=== PATIENT | female | born 1945 | race Caucasian/White ===

== ENCOUNTER → 2016-09-26 | Outpatient (CLI) | payer MEDICARE, BC | END | disposition home or self-care (01) | LOC: CFH 12:57 | PROVIDERS: ATTEND Internal Medicine Critical Care Medicine | DX: Z12.2 Encounter for screening for malignant neoplasm of respiratory organs (principal); J44.9 Chronic obstructive pulmonary disease, unspecified; Z87.891 Personal history of nicotine dependence | CPT/HCPCS: G0297 ==

== ENCOUNTER 2016-12-07 13:20 | Emergency (ER) | payer MEDICARE, BC ==
[~2016-12-07] VITALS: Ht 170.2 cm; Wt 66.5 kg
[~2016-12-07 13:20] MED LIST: ALBU18HF INH; ASPI-515 PO; ATEN50TA41 PO; ATOR40TA78 PO; FLUT12HF2 INH; GABA800T PO; TOPI100T38 PO; TRAZ100T15 PO
[2016-12-07] MEDS ORDERED: CRAN300T PO (15:29)
[2016-12-07] MEDS ORDERED: MULT-252 PO (15:29)
[2016-12-07] MEDS ORDERED: KETOROLAC 30 MG/1 ML ONE (15:37)
[2016-12-07 15:58] LABS: BLOOD UREA NITROGEN 8 mg/dL (7-18)
[2016-12-07] MEDS ORDERED: KETOROLAC 30 MG/1 ML IM ONE (16:00)
[2016-12-07 16:05] LABS: ASPARTATE AMINO TRANSFERASE 15 U/L (15-37)
[2016-12-07 18:00] VITALS: BP 155/68
== END 2016-12-07 18:01 | disposition home or self-care (01) ==
LOC: ED 17:55
DX: S20.212A Contusion of left front wall of thorax, initial encounter (principal); S20.211A Contusion of right front wall of thorax, initial encounter; J44.9 Chronic obstructive pulmonary disease, unspecified; I10 Essential (primary) hypertension; I25.2 Old myocardial infarction; Z85.828 Personal history of other malignant neoplasm of skin; W01.0XXA Fall on same level from slipping, tripping and stumbling without subsequent striking against object, initial encounter; Y93.89 Activity, other specified; Y92.009 Unspecified place in unspecified non-institutional (private) residence as the place of occurrence of the external cause; Y99.9 Unspecified external cause status
CPT/HCPCS: 36415; 71020; 80053; 83880; 84484; 85025; 93005; 96372; 99285; J1885

== ENCOUNTER → 2017-12-05 | Outpatient (CLI) | payer MEDICARE, BC ==
[~2017-12-05] MED LIST changes: +CRAN300T PO; +MULT-252 PO; +OMNIPAQUE 350 MG/ML, 100ML BOTTLE ONE; -TOPI100T38 PO; +TOPI100T39 PO
[2017-12-05 11:22] LABS: CREATININE 0.91 mg/dL (0.55-1.02)
== END | disposition home or self-care (01) ==
LOC: RAD 10:30
PROVIDERS: ATTEND Internal Medicine
DX: D17.71 Benign lipomatous neoplasm of kidney (principal); J43.2 Centrilobular emphysema; N20.0 Calculus of kidney; R63.4 Abnormal weight loss; F17.210 Nicotine dependence, cigarettes, uncomplicated
CPT/HCPCS: 36415; 71260; 74177; 82565; Q9967

== ENCOUNTER 2018-06-22 17:20 | Observation (INO) | payer MEDICARE, BC ==
[~2018-06-22] VITALS: Ht 165.1 cm; Wt 67.5 kg
[~2018-06-22 17:20] MED LIST changes: -OMNIPAQUE 350 MG/ML, 100ML BOTTLE ONE; +TRAZ-137 PO; -TRAZ100T15 PO
[2018-06-22] MEDS ORDERED: SODIUM CHLORIDE FLUSH 10ML SYR IVF ONE (17:30)
--- NOTE | 2018-06-22 17:47 | NUR ---
REPORT TO THIEN Hernadez RN. PT RESTING IN POSITION OF COMFORT IN [facility]. CALL LIGHT W/IN REACH. PT INSTRUCTED ON USE, VERBALIZED UNDERSTANDING. SPOUSE AT BEDSIDE. FALL PRECAUTIONS IN PLACE. CONTINUOUS SPO2 AND CARDIAC MONITORING IN PLACE. VSS. PT DENIES NEEDS AT THIS TIME.
[2018-06-22 17:57] LABS: BASOPHILS # (AUTO) 0.05 x10^3/uL (0-0.1); BASOPHILS % (AUTO) 1 % (0-1); EOSINOPHILS # (AUTO) 0.72 x10^3/uL (0-0.4); EOSINOPHILS % (AUTO) 7 % (1-7); LYMPHOCYTES # (AUTO) 4.06 x10^3/uL (1-3.4); LYMPHOCYTES % (AUTO) 40 % (22-44); MD NO; MEAN CORPUSCULAR HGB CONC 33.4 g/dL (32.4-35.8); MONOCYTES # (AUTO) 0.61 x10^3/uL (0.2-0.8); MONOCYTES % (AUTO) 6 % (2-9); NEUTROPHILS # (AUTO) 4.81 x10^3/uL (1.8-6.8); NEUTROPHILS % (AUTO) 47 % (42-75); PLATELET COUNT 233 x10^3/uL (130-400); RED BLOOD COUNT 4.51 x10^6/uL (3.82-5.3); RED CELL DISTRIBUTION WIDTH 13.1 % (9.6-15.2)
[2018-06-22 18:01] LABS: INTERNATIONAL NORMALIZED RATIO 1.01 (0.93-1.1); PROTHROMBIN TIME 10.7 Seconds (9.6-11.5)
[2018-06-22 18:04] LABS: ALANINE AMINOTRANSFERASE 15 U/L (12-78); ALBUMIN 3.4 g/dL (3.4-5.0); ANION GAP 9 mmol/L (5-15); CALCIUM 8.4 mg/dL (8.5-10.1); CHLORIDE 111 mmol/L (98-107); CREATININE 0.91 mg/dL (0.55-1.02)
[2018-06-22 18:08] LABS: ALKALINE PHOSPHATASE 54 U/L (45-117); BILIRUBIN,TOTAL 0.3 mg/dL (0.2-1.0); TOTAL PROTEIN 6.5 g/dL (6.4-8.2); TROPONIN I < 0.015 ng/mL (0.000-0.045)
--- NOTE | 2018-06-22 18:23 | NUR ---
PT BACK FROM CT. VSS. PT HAS 8/ RILEY. PT REFUSES RUBALCAVA MEDS AT THIS TIME IF THEY WERE ORDERED.
--- NOTE | 2018-06-22 19:07 | NUR ---
DR. MORE AT BEDSIDE FOR ADMIT. PT IN NAD.
[2018-06-22] MEDS ORDERED: NS + 20MEQ KCL 1,000 ML IV SCH (19:08)
[2018-06-22] MEDS ORDERED: HYDROcodone/APAP 5/325 TABLET PO PRN (19:30)
[2018-06-22] MEDS ORDERED: NICOTINE 7 MG/24 HR PATCH.TD24 TD SCH (19:30)
[2018-06-22] MEDS ORDERED: NITROGLYCERIN 0.4 MG BOTTLE (25 TABS) SL PRN (19:30)
[2018-06-22] MEDS ORDERED: ACETAMINOPHEN 325 MG TABLET PO PRN (19:30)
[2018-06-22] MEDS ORDERED: ENOXAPARIN 40 MG/0.4 ML SQ SCH (19:30)
[2018-06-22] MEDS ORDERED: DOCUSATE 100 MG CAPSULE PO PRN (19:30)
[2018-06-22] MEDS ORDERED: ONDANSETRON 2MG/ML, 2ML IVPush PRN (19:30)
[2018-06-22] MEDS ORDERED: POLYETHYLENE GLYCOL 17 GM PACKET PO PRN (19:30)
[2018-06-22] MEDS ORDERED: NITROGLYCERIN 0.4 MG/SPRAY SL PRN (19:30)
[2018-06-22] MEDS ORDERED: morphine SULFATE 10 MG/ML, 1ML IVPush PRN (19:30)
[2018-06-22] MEDS ORDERED: ALBUTEROL SULFATE 2.5 MG/3 ML NPPB PRN (20:00)
[2018-06-22] MEDS ORDERED: ATORVASTATIN 40 MG TABLET PO SCH (21:00)
[2018-06-22] MEDS ORDERED: TRAZODONE 100MG TABLET PO SCH (21:00)
[2018-06-22] MEDS ORDERED: TEMPLATE NON-FORMULARY MED. (Cranberry Extract** (Cranberry**) 300 MG) PO SCH (21:00)
[2018-06-22] MEDS: TOPIRAMATE 100 MG TABLET PO SCH (22:51)
[2018-06-22] MEDS: ATENOLOL 50 MG TABLET PO SCH (22:52)
[2018-06-22] MEDS ORDERED: GABAPENTIN 400 MG CAPSULE ONE (23:13)
[2018-06-22] MEDS ORDERED: ATORVASTATIN 20 MG TABLET ONE (23:13)
[2018-06-22 23:17] VITALS: BP 125/70
[2018-06-22] MEDS ORDERED: GABAPENTIN 400 MG CAPSULE PO SCH (23:30)
[2018-06-23 01:46] VITALS: BP 95/50
[2018-06-23] MEDS ORDERED: BUDESONIDE 0.5 MG/2 ML INHA NPPB SCH (02:30)
[2018-06-23 07:06] LABS: CHOLESTEROL, TOTAL 98 mg/dL (140-239); TRIGLYCERIDES 163 mg/dL (50-200); VLDL CHOLESTEROL 33 mg/dL (0-25)
[2018-06-23 07:09] LABS: CHOL/HDL RATIO 2.9; HDL CHOL % 35 % (28-40); HDL CHOLESTEROL (DIRECT) 34 mg/dL (40-60); LDL CHOLESTEROL,CALCULATED 31 mg/dL (54-169); LDL/HDL RATIO 0.9 (0.5-3.0); TROPONIN I < 0.015 ng/mL (0.000-0.045)
[2018-06-23 07:15] LABS: THYROID STIMULATING HORMONE 0.161 mIU/L (0.358-3.740)
[2018-06-23 07:36] VITALS: BP 123/75
[2018-06-23] MEDS ORDERED: MULTIVITAMIN 1 TABLET PO SCH (09:00)
[2018-06-23] MEDS ORDERED: SENNA/DOCUSATE TABLET PO SCH (09:00)
[2018-06-23] MEDS ORDERED: GABAPENTIN 400 MG CAPSULE PO SCH (09:00)
[2018-06-23] MEDS ORDERED: ASPIRIN 81 MG TABLET EC PO SCH (09:00)
[2018-06-23] MEDS: TOPIRAMATE 100 MG TABLET PO SCH ×2 (09:23→15:45)
[2018-06-23] MEDS: GABAPENTIN 400 MG CAPSULE PO SCH ×2 (09:23→15:43)
[2018-06-23] MEDS: ATENOLOL 50 MG TABLET PO SCH (09:24)
[2018-06-23] MEDS ORDERED: LISI2.5T PO (09:28)
[2018-06-23 12:33] VITALS: BP 148/79
[2018-06-23] MEDS ORDERED: ATORVASTATIN 20 MG TABLET PO SCH (21:00)
== END 2018-06-23 18:15 | disposition home or self-care (01) ==
LOC: ED 17:41 → INTOOBSV 18:20 → EDIP 18:20 → SUATTDRO 18:46 → 5SO 19:31
PROVIDERS: ADMIT Family Medicine; ATTEND Family Medicine
DX: R55 Syncope and collapse (principal); R07.89 Other chest pain; I25.10 Atherosclerotic heart disease of native coronary artery without angina pectoris; I10 Essential (primary) hypertension; J44.9 Chronic obstructive pulmonary disease, unspecified; E03.9 Hypothyroidism, unspecified; E86.0 Dehydration; F17.200 Nicotine dependence, unspecified, uncomplicated; I25.2 Old myocardial infarction; Z83.3 Family history of diabetes mellitus; Z95.5 Presence of coronary angioplasty implant and graft
CPT/HCPCS: 36415; 70450; 71045; 78582; 80053; 80061; 83735; 84439; 84443; 84484; 85025; 85379; 85610; 93005; 93306; 94640; 96360; 96361; 96372; 99284; A9540; A9558; C9898; G0378; J1650; J3480; J7613; J7626

== ENCOUNTER 2019-06-11 16:54 | Outpatient (CLI) | payer MEDICARE, BC ==
[~2019-06-11 16:54] MED LIST changes: -GABA800T PO; +LISI2.5T PO; -TRAZ-137 PO; +TRAZ-175 PO
[2019-06-12] MEDS ORDERED: GABA800T5 PO ×2 (09:17)
[2019-06-12] MEDS ORDERED: GABA800T PO (15:49)
[2019-06-12] MEDS ORDERED: RIVA20TA PO (17:20)
[2019-06-12] MEDS ORDERED: RIVA15TA PO ×2 (17:20)
[2019-06-12] MEDS ORDERED: NICO-487 TD (17:20)
== END 2019-06-11 23:59 | disposition home or self-care (01) ==
LOC: RAD 16:54
PROVIDERS: ATTEND Internal Medicine
DX: I82.4Y2 Acute embolism and thrombosis of unspecified deep veins of left proximal lower extremity (principal); I82.412 Acute embolism and thrombosis of left femoral vein; I82.812 Embolism and thrombosis of superficial veins of left lower extremity

== ENCOUNTER 2019-06-11 17:41 | Observation (INO) | payer MEDICARE, BC ==
[~2019-06-11] VITALS: Ht 165.1 cm; Wt 65.7 kg
[~2019-06-11 17:41] MED LIST changes: +TRAZ-137 PO; -TRAZ-175 PO
[2019-06-11 18:27] LABS: BASOPHILS # (AUTO) 0.04 x10^3/uL (0-0.1); BASOPHILS % (AUTO) 0 % (0-1); EOSINOPHILS # (AUTO) 0.71 x10^3/uL (0-0.4); EOSINOPHILS % (AUTO) 6 % (1-7); LYMPHOCYTES # (AUTO) 3.12 x10^3/uL (1-3.4); LYMPHOCYTES % (AUTO) 28 % (22-44); MD NO; MEAN CORPUSCULAR HEMOGLOBIN 33.1 pg (27.0-34.8); MEAN CORPUSCULAR HGB CONC 33.2 g/dL (32.4-35.8); MEAN CORPUSCULAR VOLUME 99.8 fL (80-100); MEAN PLATELET VOLUME 8.4 fL (7.4-10.4); MONOCYTES # (AUTO) 0.82 x10^3/uL (0.2-0.8); MONOCYTES % (AUTO) 7 % (2-9); NEUTROPHILS # (AUTO) 6.62 x10^3/uL (1.8-6.8); NEUTROPHILS % (AUTO) 59 % (42-75); PLATELET COUNT 205 x10^3/uL (130-400); RED BLOOD COUNT 4.33 x10^6/uL (3.82-5.3); RED CELL DISTRIBUTION WIDTH 13.6 % (9.6-15.2)
[2019-06-11] MEDS ORDERED: HEPARIN 5,000 UNITS/ML, 1ML IV PRN ×3 (18:30→21:30)
[2019-06-11] MEDS ORDERED: HEPARIN 25,000 UNITS/500ML PMX 500 ML IV PRN ×2 (18:30→21:30)
[2019-06-11] MEDS ORDERED: SODIUM CHLORIDE FLUSH 10ML SYR IVF ONE (18:30)
[2019-06-11 18:33] LABS: ALANINE AMINOTRANSFERASE 14 U/L (12-78); ALBUMIN 3.5 g/dL (3.4-5.0); ANION GAP 8 mmol/L (5-15); CALCIUM 9.6 mg/dL (8.5-10.1); CHLORIDE 109 mmol/L (98-107)
[2019-06-11 18:35] LABS: INTERNATIONAL NORMALIZED RATIO 0.99 (0.93-1.1); PROTHROMBIN TIME 10.5 Seconds (9.6-11.5)
[2019-06-11 18:36] LABS: ALKALINE PHOSPHATASE 76 U/L (45-117); BILIRUBIN,TOTAL 0.5 mg/dL (0.2-1.0); CREATININE 0.92 mg/dL (0.55-1.02); TOTAL PROTEIN 7.4 g/dL (6.4-8.2)
--- NOTE | 2019-06-11 18:53 | NUR ---
REPORT GIVEN TO FARHAD
[2019-06-11] MEDS ORDERED: HEPARIN 5,000 UNITS/ML, 1ML ONE (18:59)
[2019-06-11] MEDS ORDERED: HEPARIN 25,000 UNITS/500ML PMX 500 ML ONE (18:59)
[2019-06-11] MEDS ORDERED: HEPARIN 5,000 UNITS/ML, 1ML IV ONE (19:00)
[2019-06-11] MEDS ORDERED: ACETAMINOPHEN 325 MG TABLET PO PRN (21:00)
[2019-06-11] MEDS ORDERED: ONDANSETRON 2MG/ML, 2ML IVPush PRN (21:00)
[2019-06-11] MEDS ORDERED: hydrALAzine 20 MG/ML, 1ML IVPush PRN (21:00)
[2019-06-11] MEDS: TRAZODONE 100MG TABLET PO SCH (22:18)
[2019-06-11] MEDS: ATENOLOL 50 MG TABLET PO SCH (22:18)
[2019-06-11] MEDS: ATORVASTATIN 40 MG TABLET PO SCH (22:18)
[2019-06-11] MEDS: TOPIRAMATE 100 MG TABLET PO SCH (22:18)
[2019-06-11 22:21] LABS: FREE T4 (FREE THYROXINE) 1.16 ng/dL (0.76-1.46)
[2019-06-11] MEDS: NICOTINE 21 MG/24 HR PATCH.TD24 TD SCH (22:25)
[2019-06-11 22:35] VITALS: BP 146/76
[2019-06-11] MEDS ORDERED: GABAPENTIN 400 MG CAPSULE PO SCH (23:30)
[2019-06-12 01:41] VITALS: BP 132/69
[2019-06-12 07:40] VITALS: BP 124/76
[2019-06-12] MEDS: RIVAROXABAN 15 MG TABLET PO SCH ×2 (08:57→16:44)
[2019-06-12] MEDS: TOPIRAMATE 100 MG TABLET PO SCH ×3 (08:57→21:00)
[2019-06-12] MEDS: ATENOLOL 50 MG TABLET PO SCH ×2 (08:57→21:00)
[2019-06-12] MEDS ORDERED: LISINOPRIL 10 MG TABLET PO SCH (09:00)
[2019-06-12] MEDS ORDERED: ASPIRIN 81 MG TABLET EC PO SCH ×2 (09:00→21:00)
[2019-06-12] MEDS ORDERED: MULTIVITAMIN 1 TABLET PO SCH (09:00)
[2019-06-12] MEDS ORDERED: GABAPENTIN 400 MG CAPSULE PO SCH ×2 (09:00→21:00)
[2019-06-12] MEDS ORDERED: GABA800T5 PO ×2 (09:17)
[2019-06-12] MEDS ORDERED: SODIUM CHLORIDE 0.9% 1,000 ML IV SCH (09:30)
[2019-06-12] MEDS: BUDESONIDE 0.5 MG/2 ML INHA NPPB SCH ×2 (09:49→21:00)
[2019-06-12] MEDS: ALBUTEROL SULFATE 2.5 MG/3 ML NPPB SCH ×2 (09:49→21:00)
[2019-06-12] MEDS: GABAPENTIN 400 MG CAPSULE PO SCH ×2 (10:05→16:44)
[2019-06-12 14:35] VITALS: BP 137/82
[2019-06-12] MEDS ORDERED: GABA800T PO (15:49)
[2019-06-12] MEDS ORDERED: RIVA15TA PO ×2 (17:20)
[2019-06-12] MEDS ORDERED: RIVA20TA PO (17:20)
[2019-06-12] MEDS ORDERED: NICO-487 TD (17:20)
[2019-06-12] MEDS: NICOTINE 21 MG/24 HR PATCH.TD24 TD SCH (21:00)
[2019-06-12] MEDS: TRAZODONE 100MG TABLET PO SCH (21:00)
[2019-06-12] MEDS: ATORVASTATIN 40 MG TABLET PO SCH (21:00)
== END 2019-06-12 22:00 | disposition home or self-care (01) ==
LOC: ED 18:27 → EDIP 19:22 → INTOOBSV 19:22 → 4NE 21:02
PROVIDERS: ADMIT Family Medicine; ATTEND Internal Medicine
DX: I82.412 Acute embolism and thrombosis of left femoral vein (principal); I11.0 Hypertensive heart disease with heart failure; I50.32 Chronic diastolic (congestive) heart failure; E78.5 Hyperlipidemia, unspecified; E03.9 Hypothyroidism, unspecified; G62.9 Polyneuropathy, unspecified; F17.210 Nicotine dependence, cigarettes, uncomplicated; F51.04 Psychophysiologic insomnia; I25.10 Atherosclerotic heart disease of native coronary artery without angina pectoris; I25.2 Old myocardial infarction; E78.00 Pure hypercholesterolemia, unspecified; I35.1 Nonrheumatic aortic (valve) insufficiency; J43.9 Emphysema, unspecified; Z79.82 Long term (current) use of aspirin; Z95.5 Presence of coronary angioplasty implant and graft; Z79.899 Other long term (current) drug therapy
CPT/HCPCS: 36415; 71045; 78582; 80053; 84439; 84443; 84481; 85025; 85520; 85610; 85730; 93005; 93306; 94640; 96374; 96376; 97162; 99284; A9540; A9558; G0378; J1644; J7613; J7626

== ENCOUNTER 2020-08-10 12:34 | Inpatient (IN) | payer MEDICARE, BC ==
[~2020-08-10] VITALS: Ht 157.5 cm; Wt 60.1 kg
[~2020-08-10 12:34] MED LIST changes: -ASPI-515 PO; +ASPI-963 PO; +GABA800T PO; +GABA800T5 PO; +NICO-587 TD; +RIVA15TA PO; +RIVA20TA PO; -TRAZ-137 PO; +TRAZ-175 PO
[2020-08-10] MEDS ORDERED: SODIUM CHLORIDE FLUSH 10ML SYR IVF ONE (13:30)
[2020-08-10] MEDS ORDERED: ASPIRIN 81 MG TABLET CHEW PO ONE (13:30)
[2020-08-10 13:41] LABS: BASOPHILS % (AUTO) 1 % (0-1); EOSINOPHILS % (AUTO) 1 % (1-7); LYMPHOCYTES % (AUTO) 14 % (22-44); MEAN CORPUSCULAR HEMOGLOBIN 33.6 pg (27.0-34.8); MEAN CORPUSCULAR HGB CONC 33.9 g/dL (32.4-35.8); MEAN PLATELET VOLUME 8.1 fL (7.4-10.4); MONOCYTES % (AUTO) 9 % (2-9); NEUTROPHILS % (AUTO) 76 % (42-75); PLATELET COUNT 201 x10^3/uL (130-400); RED BLOOD COUNT 4.38 x10^6/uL (3.82-5.3); RED CELL DISTRIBUTION WIDTH 12.7 % (9.6-15.2)
[2020-08-10 13:46] LABS: MD NO
[2020-08-10] MEDS ORDERED: ASPIRIN 81 MG TABLET CHEW ONE (13:47)
--- NOTE | 2020-08-10 13:50 | NUR ---
PATIENT ROUNDED ON VSS, NADN, MEDICATED PER EMAR
[2020-08-10 13:51] LABS: ALANINE AMINOTRANSFERASE 13 U/L (12-78); ANION GAP 8 mmol/L (5-15); CALCIUM 9.9 mg/dL (8.5-10.1); CHLORIDE 111 mmol/L (98-107); CREATININE 1.06 mg/dL (0.55-1.02)
[2020-08-10 13:55] LABS: ALKALINE PHOSPHATASE 61 U/L (45-117); BILIRUBIN,TOTAL 0.7 mg/dL (0.2-1.0); TOTAL PROTEIN 6.9 g/dL (6.4-8.2); TROPONIN I < 0.015 ng/mL (0.000-0.045)
--- NOTE | 2020-08-10 14:08 | NUR ---
LATE ENTRY; 74 YO F CAME IN WITH C/O SOB X1 WEEK WITH R. ARM AND CHEST PAIN WELL ACUTE ON CHRONIC DIARRHEA. PATIENT ATTACHED TO ALL MONITORS, VSS, NADN. EVALUATED BY DR. YUEN.
[2020-08-10] MEDS ORDERED: DIPHENHYDRAMINE 50 MG/ML, 1ML ONE (14:50)
[2020-08-10] MEDS ORDERED: DIPHENHYDRAMINE 50 MG/ML, 1ML IVPush ONE (15:00)
--- NOTE | 2020-08-10 15:02 | NUR ---
vss, nadn, patient medicated per emar.
[2020-08-10] MEDS ORDERED: OMNIPAQUE 350 MG/ML, 75ML BOTTLE ONE (15:39)
[2020-08-10] MEDS ORDERED: HEPARIN 25,000 UNITS/250ML PMX 250 ML ONE (16:12)
[2020-08-10] MEDS ORDERED: HEPARIN 5,000 UNITS/ML, 1ML ONE (16:12)
[2020-08-10] MEDS ORDERED: POTASSIUM CHLORIDE 20 MEQ TAB.ER.PRT PO ONE (16:30)
[2020-08-10] MEDS ORDERED: HEPARIN 25,000 UNITS/250ML PMX 250 ML IV PRN (16:30)
[2020-08-10] MEDS ORDERED: HEPARIN 5,000 UNITS/ML, 1ML IV ONE (16:30)
[2020-08-10] MEDS ORDERED: HEPARIN 5,000 UNITS/ML, 1ML IV PRN (16:30)
--- NOTE | 2020-08-10 16:30 | NUR ---
patient with new confusion. Hospitals at bedside and patient thought she was her daughter and that the year was 2000. Hospitalist ordered head ct. suspecting previous iv bendryl adminstration. will hold heparin until head ct resulted. MOISES sung
[2020-08-10 16:41] LABS: INTERNATIONAL NORMALIZED RATIO 1.09 (0.93-1.1); PROTHROMBIN TIME 11.6 Seconds (9.6-11.5)
[2020-08-10] MEDS ORDERED: ACETAMINOPHEN 325 MG TABLET PO PRN (17:00)
--- NOTE | 2020-08-10 17:30 | NUR ---
RN called MICHAEL Pritchard. Head CT negative. Per MICHAEL order, start heparin.
[2020-08-10 18:33] VITALS: BP 151/78
[2020-08-10] MEDS ORDERED: POTASSIUM CHLORIDE 20 MEQ TAB.ER.PRT ONE (20:56)
[2020-08-10] MEDS: ATENOLOL 50 MG TABLET PO SCH (21:10)
[2020-08-10] MEDS: ATORVASTATIN 40 MG TABLET PO SCH (21:10)
[2020-08-10] MEDS: GABAPENTIN 400 MG CAPSULE PO SCH (22:36)
[2020-08-11 01:37] VITALS: BP 131/80
[2020-08-11] MEDS ORDERED: GABA800T5 PO (01:51)
[2020-08-11 05:27] LABS: BASOPHILS % (AUTO) 0 % (0-1); EOSINOPHILS % (AUTO) 0 % (1-7); LYMPHOCYTES % (AUTO) 13 % (22-44); MEAN CORPUSCULAR HEMOGLOBIN 34.1 pg (27.0-34.8); MEAN PLATELET VOLUME 8.6 fL (7.4-10.4); MONOCYTES % (AUTO) 9 % (2-9); NEUTROPHILS % (AUTO) 77 % (42-75); PLATELET COUNT 221 x10^3/uL (130-400); RED BLOOD COUNT 4.15 x10^6/uL (3.82-5.3); RED CELL DISTRIBUTION WIDTH 12.8 % (9.6-15.2)
[2020-08-11 05:37] LABS: MD NO
[2020-08-11 05:39] LABS: CHLORIDE 111 mmol/L (98-107)
[2020-08-11 05:53] LABS: ALANINE AMINOTRANSFERASE 15 U/L (12-78); ALBUMIN 2.9 g/dL (3.4-5.0); ALKALINE PHOSPHATASE 61 U/L (45-117); ANION GAP 10 mmol/L (5-15); BILIRUBIN,TOTAL 0.4 mg/dL (0.2-1.0); CALCIUM 9.4 mg/dL (8.5-10.1); CHOL/HDL RATIO 2.9; CHOLESTEROL, TOTAL 128 mg/dL (140-239); CREATININE 0.86 mg/dL (0.55-1.02); HDL CHOL % 34 % (28-40); HDL CHOLESTEROL (DIRECT) 44 mg/dL (40-60); LDL CHOLESTEROL,CALCULATED 60 mg/dL (54-169); LDL/HDL RATIO 1.4 (0.5-3.0); TOTAL PROTEIN 6.7 g/dL (6.4-8.2); TRIGLYCERIDES 121 mg/dL (50-200); VLDL CHOLESTEROL 24 mg/dL (0-25)
[2020-08-11] MEDS: GABAPENTIN 400 MG CAPSULE PO SCH ×4 (05:58→20:55)
[2020-08-11] MEDS ORDERED: imodium (06:29)
[2020-08-11 06:47] VITALS: BP 171/66
[2020-08-11] MEDS: FLUTICASONE/VILANTEROL 100-25MCG/INH INH SCH (08:23)
[2020-08-11] MEDS: ALBUTEROL HFA 90 MCG/SPRAY INH PRN (08:23)
[2020-08-11] MEDS: ATENOLOL 50 MG TABLET PO SCH ×2 (09:31→20:56)
[2020-08-11 12:06] VITALS: BP 150/59
[2020-08-11] MEDS: APIXABAN 5 MG TABLET PO SCH ×2 (12:12→20:55)
[2020-08-11] MEDS: LISINOPRIL 10 MG TABLET PO SCH (12:12)
[2020-08-11] MEDS ORDERED: GABAPENTIN 400 MG CAPSULE PO SCH (16:00)
[2020-08-11] MEDS: TOPIRAMATE 100 MG TABLET PO SCH ×2 (16:28→20:55)
[2020-08-11] MEDS: GUAIFENESIN ER 600 MG TABLET PO SCH ×2 (16:28→20:55)
[2020-08-11 19:33] VITALS: BP 143/83
[2020-08-11] MEDS: TRAZODONE 100MG TABLET PO SCH (20:55)
[2020-08-11] MEDS: ATORVASTATIN 40 MG TABLET PO SCH (20:55)
[2020-08-12 02:01] VITALS: BP 130/78
[2020-08-12] MEDS: GABAPENTIN 400 MG CAPSULE PO SCH ×4 (06:12→20:31)
[2020-08-12 07:00] VITALS: BP 148/77
[2020-08-12] MEDS: GUAIFENESIN ER 600 MG TABLET PO SCH ×2 (07:46→20:31)
[2020-08-12] MEDS: LISINOPRIL 10 MG TABLET PO SCH (07:46)
[2020-08-12] MEDS: APIXABAN 5 MG TABLET PO SCH ×2 (07:46→20:31)
[2020-08-12] MEDS: ATENOLOL 50 MG TABLET PO SCH ×2 (07:46→20:31)
[2020-08-12] MEDS: TOPIRAMATE 100 MG TABLET PO SCH ×3 (07:47→20:31)
[2020-08-12] MEDS: ALBUTEROL HFA 90 MCG/SPRAY INH PRN (07:48)
[2020-08-12] MEDS: FLUTICASONE/VILANTEROL 100-25MCG/INH INH SCH ×2 (07:48→10:25)
[2020-08-12 12:31] VITALS: BP 145/82
[2020-08-12 19:35] VITALS: BP 152/71
[2020-08-12] MEDS: TRAZODONE 100MG TABLET PO SCH (20:31)
[2020-08-12] MEDS: ATORVASTATIN 40 MG TABLET PO SCH (20:32)
[2020-08-13 01:41] VITALS: BP 148/84
[2020-08-13] MEDS: GABAPENTIN 400 MG CAPSULE PO SCH (05:03)
[2020-08-13 07:52] VITALS: BP 140/69
[2020-08-13] MEDS: LISINOPRIL 10 MG TABLET PO SCH (08:08)
[2020-08-13] MEDS: TOPIRAMATE 100 MG TABLET PO SCH (08:08)
[2020-08-13] MEDS: GUAIFENESIN ER 600 MG TABLET PO SCH (08:08)
[2020-08-13] MEDS: ATENOLOL 50 MG TABLET PO SCH (08:08)
[2020-08-13] MEDS: APIXABAN 5 MG TABLET PO SCH (08:08)
[2020-08-13] MEDS ORDERED: APIX5TAB PO (08:50)
== END 2020-08-13 10:01 | disposition home health service (06) | DRG 175 ==
LOC: ED 13:05 → SUATTDRO 16:19 → EDIP 16:39 → 4WST 18:11 → DCLOUNGE 08-13 09:51
PROVIDERS: ADMIT Hospitalist; ATTEND Family Medicine
DX: I26.99 Other pulmonary embolism without acute cor pulmonale (principal); G92 Toxic encephalopathy; N17.9 Acute kidney failure, unspecified; E78.5 Hyperlipidemia, unspecified; E87.6 Hypokalemia; Z66 Do not resuscitate; G43.909 Migraine, unspecified, not intractable, without status migrainosus; I10 Essential (primary) hypertension; J44.9 Chronic obstructive pulmonary disease, unspecified; T45.0X5A Adverse effect of antiallergic and antiemetic drugs, initial encounter; I25.2 Old myocardial infarction; Z79.01 Long term (current) use of anticoagulants; Z86.718 Personal history of other venous thrombosis and embolism; Y92.89 Other specified places as the place of occurrence of the external cause; Z88.0 Allergy status to penicillin; Z88.1 Allergy status to other antibiotic agents; Z91.040 Latex allergy status; Z88.8 Allergy status to other drugs, medicaments and biological substances; Z91.041 Radiographic dye allergy status
CPT/HCPCS: 36415; 70450; 71045; 71275; 80053; 80061; 83735; 84100; 84443; 84484; 85025; 85520; 85610; 93005; 93306; 93970; 94640; 96374; 96375; 99291; G0378; J1644; Q9967; J1200; J7512